=== PATIENT | female | born 1965 | race Caucasian/White ===

== ENCOUNTER 2017-10-15 21:33 | Emergency (ER) | payer OTHER ==
[~2017-10-15] VITALS: Ht 172.7 cm; Wt 90.7 kg
[~2017-10-15 21:33] MED LIST: ASPIRIN EC81 MG PO; BENTYL10 MG PO; CARAFATE1 GM PO; CYCLOBENZAPRINE10 MG PO; CYMBALTA30 MG PO; DICLOFENAC SODI75 MG PO; DULOXETINE HCL30 MG PO; FOLIC ACID0.4 MG PO; HYDROCHLOROTHIA25 MG PO; IBUPROFEN600 MG PO; INNOPRAN XL120 MG PO; LORAZEPAM2 MG PO; LOVASTATIN20 MG PO; MECLIZINE HCL25 MG PO; MUPIROCIN1 GM TOP; NAPROSYN500 MG PO; NORCO 5-325 TA1 EACH PO; OMEPRAZOLE20 M1 PO; OMEPRAZOLE40 MG PO; PANTOPRAZOLE SO40 MG PO; PAXIL20 MG PO; PRAVASTATIN SOD40 MG PO; PRAZOSIN HCL1 MG PO; PROMETHAZI IV; PROPRANOLOL HCL20 MG PO; PROTONIX40 MG PO; PROVENTIL HFA6.7 GM INH; PROZAC20 MG PO; QUETIAPINE FUMA50 MG PO; ROXICODONE15 MG PO; TESSALON PERLE100 MG PO; TIZANIDINE HCL4 M1 PO; TRAZODONE HCL50 MG PO; VALIUM5 MG PO; VITAMIN D35000 UNI1 PO; WELLBUTRIN XL150 MG PO; ZANAFLEX4 MG PO; ZOFRAN4 MG PO
== END 2017-10-15 22:33 | disposition left against medical advice (07) ==
LOC: ED 21:33
DX: R10.9 Unspecified abdominal pain (principal); I10 Essential (primary) hypertension; F17.200 Nicotine dependence, unspecified, uncomplicated; E78.00 Pure hypercholesterolemia, unspecified; Z88.5 Allergy status to narcotic agent; Z88.1 Allergy status to other antibiotic agents; Z79.899 Other long term (current) drug therapy; Z79.82 Long term (current) use of aspirin
CPT/HCPCS: 99282

== ENCOUNTER 2019-05-10 16:40 | Emergency (ER) | payer MEDICARE, OTHER ==
[~2019-05-10] VITALS: Ht 172.7 cm; Wt 64.9 kg
[~2019-05-10 16:40] MED LIST changes: +LIDOCAINE HC TOP
--- OUTSIDE RECORDS SUMMARY | 2019-05-10 16:42 | XMS ---
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 No recent Security Events currently on file CRITERIA MET - Group Notification - [facility] - Has Care Guidelines - PDMP - [facility] - 2 Visits in 30 Days [facility] JESUS Campbell PHONE: [phone] Mayo Ovalles Current PHONE: Unknown ARTEMIO HULL Primary Care Current PHONE: Unknown Ramandeep Chandler Current Orthopedic Surgery \T\ [facility] PHONE: Unknown Guidelines Source: Sophia Joy Guidelines Date: 05/08/2019 Care Coordination: Mental health services provided by [employer].\T\nbsp; Please contact [employer] with mental health concerns.\T\nbsp; [facility]in[facility]: [phone]\T\ nbsp; Jam: [phone]. E.D. VISIT COUNT (12 MO.) 2 [facility] Cookie 2 [facility] H[facility]abella TOTAL 4 NOTE: Visits indicate total known visits. ED/UCC VISIT TRACKING (12 MO.) 05/10/2019 16:41 [facility] Rodriguez [place] TYPE: Emergency COMPLAINT: - COUGH [facility]05[facility]2019 17[facility] DIAGNOSES: - poss parasite - Procedure and treatment not carried out due to patient leaving prior to being seen by health care provider 12/10/2018 12:[facility] DIAGNOSES: - Other specified diseases of anus and rectum - Abscess - Rectal Pain - Rectum PN 07/01/2018 17:53 LYNN Clement TYPE: Emergency COMPLAINT: - ABSCESS DIAGNOSES: - Old myocardial infarction - Allergy status to other antibiotic agents status - Allergy status to narcotic agent status - Other terminal gauger (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
[2019-05-10] MEDS ORDERED: NORCO 7.5-3251 EACH PO (17:13)
[2019-05-10] MEDS ORDERED: DOXYCYCLINE HY100 MG PO (17:32)
[2019-05-10] MEDS ORDERED: PREDNISONE20 MG PO (17:32)
== END 2019-05-10 17:51 | disposition home or self-care (01) ==
LOC: ED 16:40
DX: J40 Bronchitis, not specified as acute or chronic (principal); L50.9 Urticaria, unspecified; I10 Essential (primary) hypertension; I25.2 Old myocardial infarction; F17.200 Nicotine dependence, unspecified, uncomplicated; Z88.1 Allergy status to other antibiotic agents; Z88.5 Allergy status to narcotic agent; Z79.82 Long term (current) use of aspirin; Z79.899 Other long term (current) drug therapy
CPT/HCPCS: 99283; J7512

== ENCOUNTER 2020-04-06 21:44 | Emergency (ER) | payer MEDICARE, OTHER ==
[~2020-04-06] VITALS: Ht 172.7 cm; Wt 64.9 kg
[~2020-04-06 21:44] MED LIST changes: +DOXYCYCLINE HY100 MG PO; +NORCO 7.5-3251 EACH PO; +PREDNISONE20 MG PO
--- OUTSIDE RECORDS SUMMARY | 2020-04-06 21:48 | XMS ---
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 - Has Care Guidelines [facility]Karine LEE [employer] PHONE: [phone] Guidelines Source: [facility] Guidelines Date: 05/08/2019 Care Coordination: Mental health services provided by [employer].\T\nbsp; Please contact [employer] with mental health concerns.\T\nbsp; [facility]: [phone]\T\ nbsp; [place]: [phone]. E.D. VISIT COUNT (12 MO.) [address] Arlen Gary 2 [facility] TOTAL 4 NOTE: Visits indicate total known visits. 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
[2020-04-06] MEDS ORDERED: VITAMIN D31250 MC1 PO (22:07)
== END 2020-04-06 22:55 | disposition home or self-care (01) ==
LOC: ED 21:44
DX: H16.8 Other keratitis (principal); I10 Essential (primary) hypertension; I25.2 Old myocardial infarction; F17.200 Nicotine dependence, unspecified, uncomplicated; Z88.5 Allergy status to narcotic agent; Z88.1 Allergy status to other antibiotic agents; Z79.899 Other long term (current) drug therapy; Z79.82 Long term (current) use of aspirin
CPT/HCPCS: 99283

== ENCOUNTER 2020-08-16 21:27 | Emergency (ER) | payer MEDICARE, OTHER ==
[~2020-08-16] VITALS: Ht 172.7 cm; Wt 64.7 kg
[~2020-08-16 21:27] MED LIST changes: +VITAMIN D31250 MC1 PO
--- OUTSIDE RECORDS SUMMARY | 2020-08-16 21:30 | XMS ---
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 E.D. VISIT COUNT (12 MO.) [address] [place] [address] TOTAL 2 NOTE: Visits indicate total known visits. ED/UCC VISIT TRACKING (12 MO.) 08/16/2020 21:28 [facility] Rodriguez [place] TYPE: Emergency COMPLAINT: - HIP PAIN 04/06/2020 21:45 [facility] Rodriguez [place] TYPE: Emergency COMPLAINT: - EYE PAIN DIAGNOSES: - Old myocardial infarction - Allergy status to other antibiotic agents - Ocular pain, right eye - Essential (primary) hypertension - Other chcf (current) drug therapy - care home (current) use of aspirin - Allergy status to narcotic agent - Other keratitis - Nicotine dependence, unspecified, uncomplicated INPATIENT VISIT TRACKING (12 MO.) No inpatient visits to display in this time frame [email or web address]
[2020-08-16] MEDS ORDERED: CYCLOBENZAPRINE10 MG PO (21:59)
== END 2020-08-16 22:15 | disposition home or self-care (01) ==
LOC: ED 21:27
DX: M54.31 Sciatica, right side (principal); I10 Essential (primary) hypertension; E78.00 Pure hypercholesterolemia, unspecified; I25.2 Old myocardial infarction; F17.200 Nicotine dependence, unspecified, uncomplicated; Z88.5 Allergy status to narcotic agent; Z88.1 Allergy status to other antibiotic agents; Z79.82 Long term (current) use of aspirin
CPT/HCPCS: 99283

== ENCOUNTER 2020-09-19 18:15 | Emergency (ER) | payer MEDICARE, OTHER ==
[~2020-09-19] VITALS: Ht 172.7 cm; Wt 63.5 kg
--- OUTSIDE RECORDS SUMMARY | 2020-09-19 18:18 | XMS ---
PreManage Notification: EVIN FIELDS Security Mold Checker Events No recent Security Events currently on file CRITERIA MET - Group Notification - [facility] - Has Care Guidelines CARE PROVIDERS EMILIA, [facility] Medicine 07/02/2018-Current JESUS [employer] PHONE: [phone] Guidelines Source: [employer] [facility] Guidelines Date: 05/08/2019 Care Coordination: Mental health services provided by [employer].\T\nbsp; Please contact [employer] with mental health concerns.\T\nbsp; [facility]: [phone]\T\ nbsp; Jam: [phone]. Care History Medical/Surgical 08/24/2020 [facility] - [facility] RECEIVED -CASE MANAGEMENT CONSULT TO HELP PATIENT WITH ESTABLISHING CARE WITH A PROVIDER. - [facility]W CALLED PATIENT- UNABLE TO LEAVE A MESSAGE- VOICEMAIL BOX IS CURRENTLY FULL. - NO PCP LETTER SENT. E.D. VISIT COUNT (12 MO.) 3 [facility] TOTAL 3 NOTE: Visits indicate total known visits. 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
[2020-09-19] MEDS ORDERED: MUPIROCIN22 GM TOP (20:14)
[2020-09-19] MEDS ORDERED: CEPHALEXIN500 MG PO (20:14)
== END 2020-09-19 20:35 | disposition home or self-care (01) ==
LOC: ED 18:15
DX: J34.0 Abscess, furuncle and carbuncle of nose (principal); I10 Essential (primary) hypertension; E78.00 Pure hypercholesterolemia, unspecified; I25.2 Old myocardial infarction; F17.200 Nicotine dependence, unspecified, uncomplicated; Z88.2 Allergy status to sulfonamides; Z88.5 Allergy status to narcotic agent; Z88.1 Allergy status to other antibiotic agents; Z79.82 Long term (current) use of aspirin; Z79.899 Other long term (current) drug therapy
CPT/HCPCS: 90471; 90714; 99283-25